=== PATIENT | female | born 1960 | race Caucasian/White ===

== ENCOUNTER 2021-11-29 08:15 | Outpatient (CLI) | payer MEDICAID, SELFPAY ==
--- NOTE | 2021-11-29 08:20 | MM_ITS ---
WS: [id number] BILATERAL SCREENING DIGITAL BREAST TOMOSYNTHESIS MAMMOGRAM WITH CAD HISTORY: SCREENING COMPARISON: 02/15/2010 Bilateral CC and MLO views with tomosynthesis and synthetic mammography submitted. Computer aided det ection analyzed. Breast composition: The breasts are extremely dense, which lowers the sensitivity of mammography. No suspicious masses, microcalcifications or architectural distortion. MM/[place] [id number] IMPRESSION: BI-RADS: 1-Negative FOLLOW UP: 1 Year Follow-up
== END 2021-11-29 08:16 | disposition home or self-care (01) ==
LOC: RAD 08:18
PROVIDERS: PCP Family Medicine; Visit Provider Nurse Practitioner Family
DX: Z12.31 Encounter for screening mammogram for malignant neoplasm of breast (principal)
CPT/HCPCS: 77063; 77067

== ENCOUNTER → 2022-02-26 11:49 | Outpatient (BNVA) | payer MEDICAID, SELFPAY | PROVIDERS: PCP Family Medicine; Visit Provider Family Medicine | DX: E03.9 Hypothyroidism, unspecified (principal); E78.2 Mixed hyperlipidemia; F41.9 Anxiety disorder, unspecified; G80.9 Cerebral palsy, unspecified; I10 Essential (primary) hypertension; Z76.89 Persons encountering health services in other specified circumstances; M79.672 Pain in left foot; M21.612 Bunion of left foot | CPT/HCPCS: 80053; 80061; 84439; 84443; 85025 ==

== ENCOUNTER → 2022-06-17 09:18 | Outpatient (BNVA) | payer MEDICAID, SELFPAY | PROVIDERS: PCP Family Medicine; Visit Provider Family Medicine | DX: E03.9 Hypothyroidism, unspecified (principal) | CPT/HCPCS: 84439; 84443 ==

== ENCOUNTER → 2022-12-16 08:20 | Outpatient (BNVA) | payer MEDICAID, SELFPAY | PROVIDERS: PCP Family Medicine; Visit Provider Family Medicine | DX: D64.9 Anemia, unspecified (principal); E03.9 Hypothyroidism, unspecified; E78.2 Mixed hyperlipidemia; I10 Essential (primary) hypertension | CPT/HCPCS: 80053; 80061; 82607; 82746; 84439; 84443; 85025 ==

== ENCOUNTER 2023-02-06 18:11 | Emergency (ER) | payer MEDICAID, SELFPAY ==
[2023-02-06 18:12] VITALS: BP 145/68; PULSE 89; RESP 18; TEMP 36.8; O2SAT 98; BMI 21.1
--- NOTE | 2023-02-06 18:33 | W.ED.ANXIETY ---
HPI - Anxiety General: Chief Complaint: Anxiety Stated Complaint: ANXIETY Time Seen by Provider: 02/06/23 18:20 History of Present Illness: Patient presents to the ER by EMS with complaints of nausea vomiting diarrhea rapid breathing muscle cramps. Patient states she had a lot of anxiety. Patient's was in the ER last night for STEMI and got a stent. Since then she is having lots of anxiety and gastritis type symptoms. Patient has had gastritis in the past but is not currently on any medicine for this. Ativan was given by EMS and patient says she feels little bit better. Patient is asking for ice chips. Review of Systems General: Reports: 10 or more systems reviewed and unremarkable except in HPI and below PFSH ED PFSH: Medical History Anxiety Cerebral palsy Social History Smoking and tobacco status: never smoked Alcohol intake: never Substance/Drug Use: current Female Reproductive History: Spontaneous abortions: No Physical Exam Const: COMMON NORMALS: no acute distress, average body habitus, patient oriented x3, no limitations, healthy appearing, alert and well nourished HENMT: COMMON NORMALS: normocephalic, atraumatic, hearing grossly normal bilaterally, external ears normal, Normal external nose present and moist oral mucous membranes HEAD & SCALP: normocephalic and atraumatic NOSE: Normal external nose present EXTERNAL EAR: Yes external ears normal Eye: COMMON NORMALS: Equal, round and reactive pupils present, EOMs intact bilaterally, conjunctivae normal and no scleral icterus CONJUNCTIVA: Yes conjunctivae normal PUPIL: Yes Equal, round and reactive pupils present Neck/C-Spine: COMMON NORMALS: no JVD Chest: COMMONS NORMALS: normal inspection of the chest and normal palpation of entire chest wall Resp: COMMON NORMALS: normal respiratory effort, No retractions, No use of accessory muscles and clear to auscultation bilaterally AUSCULTATION: clear to auscultation bilaterally Cardio: COMMON NORMALS: no JVD, regular rate, regular rhythm, S1 normal heart sound present, S2 normal heart sound present, No gallops present (Cardio), No clicks present (Cardio), No murmurs present (Cardio) and No rub (Cardio) RATE: regular rate RHYTHM: regular rhythm HEART SOUNDS: S1 normal heart sound present and S2 normal heart sound present GI: COMMON NORMALS: Normal to inspection, nondistended, normoactive bowel sounds present, Soft to palpation, non-tender, No hepatosplenomegaly present and no masses PALPATION: Yes Soft to palpation and Yes No hepatosplenomegaly present : COMMON NORMALS: Yes no CVA tenderness BLADDER/KIDNEY EXAM: Yes no CVA tenderness Back/Pelvis: COMMON NORMALS: no CVA tenderness Neuro: COMMON NORMALS: patient oriented x3 SENSORIUM/ORIENTATION: Yes alert Psych: COMMON NORMALS: mental status grossly normal and Normal thought process present MOOD & AFFECT: Yes anxious THOUGHT PROCESS: Normal thought process present Course Vital Signs: Vital signs: Vital Signs Temperature 98.2 F 02/06/23 18:12 Pulse Rate 89 02/06/23 18:12 Respiratory Rate 18 02/06/23 18:12 Blood Pressure 145/68 02/06/23 18:12 Pulse Oximetry 98 02/06/23 18:12 Oxygen Delivery Me thod Room Air 02/06/23 18:12 MDM - Anxiety Medical Decision Making Patient presents to the ER with gastritis and anxiety secondary to a stressful event with her having a STEMI last night. Patient has Tagamet at home and is on es Citalopram for anxiety. Patient has used Klonopin and Ativan before in the past for anxiety on a as needed basis but did not like the side effects of either one of them. Patient be discharged on buspirone to use on an as-needed basis. Patient should follow-up with her PCP in the next week. Differential Diagnosis Likely hyperventilation and acute anxiety; Unlikely panic disorder Medical Records I reviewed the patient's medical records. Lab Data I reviewed the patient's lab results. 02/06/23 18:45 02/06/23 18:45 Laboratory Results WBC 8.90 10^3/uL (3.29-11.43) 02/06/23 18:45 RBC 3.43 10^6/uL (3.85-5.65) L 02/06/23 18:45 Hgb 10.30 g/dL (11.27-16.99) L 02/06/23 18:45 Hct 30.8 % (36-47) L 02/06/23 18:45 MCV 89.8 fl (85-98) 02/06/23 18:45 MCH 30.0 pg (27-33) 02/06/23 18:45 MCHC 33.4 g/dL (30-55) 02/06/23 18:45 RDW 13.2 % (12.1-15.1) 02/06/23 18:45 Plt Count 243 10^3/cmm (157-399) 02/06/23 18:45 MPV 9.6 fL (7.4-10.4) 02/06/23 18:45 Neut % (Auto) 88.9 % 02/06/23 18:45 Lymph % (Auto) 6.7 % 02/06/23 18:45 [place] % (Auto) 3.8 % 02/06/23 18:45 Eos % (Auto) 0.0 % 02/06/23 18:45 Baso % (Auto) 0.2 % 02/06/23 18:45 Neut # (Auto) 7.90 10^3/uL (1.8-7.7) H 02/06/23 18:45 Lymph # (Auto) 0.6 10^3/uL (0.8-4.8) L 02/06/23 18:45 [place] # (Auto) 0.3 10^3/uL (0.2-0.9) 02/06/23 18:45 Eos # (Auto) 0.0 10^3/uL (0.0-0.8) 02/06/23 18:45 Baso # (Auto) 0.0 10^3/uL (0.0-0.1) 02/06/23 18:45 Nucleated RBC % (auto) 0 % 02/06/23 18:45 Nucleated RBCs # 0.0 /100WBC 02/06/23 18:45 Sodium 139 mmol/L (136-145) 02/06/23 18:45 Potassium 3.8 mmol/L (3.5-5.1) 02/06/23 18:45 Chloride 105 mmol/L (98-107) 02/06/23 18:45 Carbon Dioxide 23 mmol/L (22-29) 02/06/23 18:45 Anion Gap 14.8 (5-19) 02/06/23 18:45 BUN 30 mg/dL (8-23) H 02/06/23 18:45 Creatinine 1.4 mg/dL (0.5-0.9) H 02/06/23 18:45 GFR Calculation 38.2 mL/min (90-130) L 02/06/23 18:45 Glucose 141 mg/dL (65-115) H 02/06/23 18:45 Calculated Osmolality 297 mOsm/kg (285-295) H 02/06/23 18:45 Calcium 9.0 mg/dL (8.5-10.5) 02/06/23 18:45 Magnesium 1.9 mg/dL (1.7-2.3) 02/06/23 18:45 Total Bilirubin 0.5 mg/dL (0.15-1.2) 02/06/23 18:45 AST 17 U/L (0-32) 02/06/23 18:45 ALT 11 U/L (0-33) 02/06/23 18:45 Alkaline Phosphatase 59 U/L (35-105) 02/06/23 18:45 Total Protein 6.6 g/dL (6.6-8.7) 02/06/23 18:45 Albumin 4.5 g/dL (3.5-5.2) 02/06/23 18:45 Globulin 2.1 g/dL (1.3-4.6) 02/06/23 18:45 Discharge Plan Discharge Patient Disposition: Home Clinical Impression: Acute anxiety Gastritis Qualifiers: Gastritis type: unspecified gastritis Chronicity: unspecified Gastritis bleeding: without bleeding Qualified Code(s): K29.70 - Gastritis, unspecified, without bleeding Condition: Stable Prescriptions: New buspirone 5 mg tablet 5 mg PO TID PRN (Reason: anxiety) Qty: 14 0RF ondansetron 4 mg tablet,disintegrating 4 mg PO TID PRN (Reason: nausea and vomiting) Qty: 14 0RF No Action escitalopram oxalate 20 mg tablet See Rx Instructions .ROUTE .COMPLEX Qty: 90 3RF Dose Instruction: Take 1 tablet by mouth once daily Rx Instructions: Take 1 tablet by mouth once daily ezetimibe 10 mg tablet 10 mg PO DAILY Qty: 90 3RF levothyroxine [Synthroid] 100 mcg tablet 100 mcg PO DAILY Qty: 90 1RF amlodipine-benazepril 5-20 mg capsule See Rx Instructions .ROUTE .COMPLEX Qty: 90 3RF Dose Instruction: TAKE 1 CAPSULE BY MOUTH ONCE DAILY IN THE EVENING Rx Instructions: TAKE 1 CAPSULE BY MOUTH ONCE DAILY IN THE EVENING Discharge Orders: Discharge ED (Routine); Ordered 02/06/23 Ordered By: Yohan Bermeo Referrals: Jesús Smith DO [Primary Care Provider] - Patient Instructions: Gastritis (ED), Anxiety (ED) Activity Restrictions/Additional Instructions: Please take all medicine as prescribed please continue your Tagamet for your stomach. Please follow-up with your family practice physician in the next 7 days for further evaluation and treatment as needed. Coding Level of Care Code ED Cash Room Clerk for Fiona Sauer
[2023-02-06] MEDS: famotidine 20 mg Tablet 40 MG PO (18:53)
[2023-02-06] MEDS: ondansetron 4 MG Tablet PO (18:53)
[2023-02-06 18:55] LABS: Basophils % 0.2 %; Hematocrit 30.8 % (36-47); Lymphocytes # 0.6 10^3/uL (0.8-4.8); Lymphocytes % 6.7 %; Mean Corpuscular HGB Conc 33.4 g/dL (30-55); Mean Corpuscular Volume 89.8 fl (85-98); Mean Platelet Volume 9.6 fL (7.4-10.4); Monocytes # 0.3 10^3/uL (0.2-0.9); Monocytes % 3.8 %; Neutrophils % 88.9 %; Nucleated Red Blood Cells % 0 %; Platelet Count 243 10^3/cmm (157-399); Red Blood Count 3.43 10^6/uL (3.85-5.65); Red Cell Distribution Width 13.2 % (12.1-15.1)
[2023-02-06 19:11] LABS: Alanine Aminotransferase 11 U/L (0-33); Albumin Level 4.5 g/dL (3.5-5.2); Alkaline Phosphatase 59 U/L (35-105); Anion Gap 14.8 (5-19); Aspartate Amino Transferase 17 U/L (0-32); Blood Urea Nitrogen 30 mg/dL (8-23); Carbon Dioxide 23 mmol/L (22-29); Chloride 105 mmol/L (98-107); Globulin 2.1 g/dL (1.3-4.6); Glomerular Filtration Rate 38.2 mL/min (90-130); Glucose 141 mg/dL (65-115); Magnesium 1.9 mg/dL (1.7-2.3); Osmolality Calculated 297 mOsm/kg (285-295); Potassium 3.8 mmol/L (3.5-5.1); Sodium 139 mmol/L (136-145); Total Bilirubin 0.5 mg/dL (0.15-1.2); Total Protein 6.6 g/dL (6.6-8.7)
== END 2023-02-06 20:02 | disposition home or self-care (01) ==
PROVIDERS: Emergency Provider Emergency Medicine; PCP Family Medicine
DX: F41.9 Anxiety disorder, unspecified (principal); K29.70 Gastritis, unspecified, without bleeding; G80.9 Cerebral palsy, unspecified
CPT/HCPCS: 36415; 80053; 83735; 85025; 99283; Q0162

== ENCOUNTER → 2023-05-13 10:14 | Outpatient (BNVA) | payer MEDICAID, SELFPAY | PROVIDERS: PCP Family Medicine; Visit Provider Family Medicine | DX: E03.9 Hypothyroidism, unspecified (principal); D64.9 Anemia, unspecified; I10 Essential (primary) hypertension; N18.32 Chronic kidney disease, stage 3b | CPT/HCPCS: 80053; 81003; 82043; 84443; 85025 ==

== ENCOUNTER 2023-05-16 11:56 | Outpatient (CLI) | payer MEDICAID, SELFPAY ==
--- NOTE | 2023-05-16 12:01 | US_ITS ---
WS: [id number] Exam: US renal BI* [id number] Date/Time of Exam: 05/16/2023 12:27 PM Reason For Exam: STAGE 3B CHRONIC KIDNEY DZ No solid renal mass or renal obstruction noted. The LEFT kidney measures 4.33 x 4 x 8.27 cm. Renal co rtex measures 1.12 cm in greatest thickness. RIGHT kidney measures 8.96 x 4.1 x 5.1 cm. RIGHT renal c ortex measures 1.35 cm at maximal thickness. IMPRESSION: 1. No indication of solid renal mass or obstruction. No stones identified. 2. The kidneys are mildly atrophic.
== END 2023-05-16 11:57 | disposition home or self-care (01) ==
LOC: RAD 11:56
PROVIDERS: PCP Family Medicine; Visit Provider Internal Medicine Nephrology
DX: N18.32 Chronic kidney disease, stage 3b (principal); N26.1 Atrophy of kidney (terminal)
CPT/HCPCS: 76770

== ENCOUNTER 2023-05-19 06:59 | Day surgery (SDC) | payer MEDICAID, SELFPAY ==
[2023-05-19 07:16] VITALS: BP 139/50; PULSE 84; RESP 18; TEMP 36.3; O2SAT 97
[2023-05-19 07:17] VITALS: BMI 20.6
[2023-05-19] MEDS: sodium chloride 0.9% 1,000 ML 30 ML IV (07:31)
--- NOTE | 2023-05-19 08:17 | P.HPUD_ITS ---
Surgery/Procedure H&P Update DATE OF PROCEDURE: May 19, 2023 DATE H&P PERFORMED: 05/09/23 H&P UPDATE INFORMATION: I have reviewed H&P completed within last 30 days, I have examined patient prior to procedure, No changes to prior documentation and H&P is in [facility] on date indicated PLANNED PROCEDURE: Operation Date: 05/19/23 10:45 Proposed Procedures p [id number] left shoulder wide local excision(Left) - Hank Fortune MD s Sentinal Lymph Node Biopsy(Left) - Hank Fortune MD
--- NOTE | 2023-05-19 08:20 | PC.NURSE ---
Patient was injected with 1.05 mCi Tc99m Tilmanocept Lymphoseek at 0753 by Rosa ZHAOMT around the scar on the left posterior shoulder. Immediate flow images started following injection patient laying prone.
[2023-05-19] MEDS: ceFAZolin 2,000 MG in sodium chloride 0.9% (plus) 50 ML 100 MG IV (12:00)
[2023-05-19] MEDS: isosulfan blue 10 mg/mL SDV 5mL 50 MG SUBCUT (12:30)
--- NOTE | 2023-05-19 13:01 | P.ANESASSM_ITS ---
Pre-Anesthetic Assessment Height/Weight: Height 1.68 m Weight 58.06 kg Temp Pulse Resp BP Pulse Ox O2 Del Method 97.3 F L 84 18 139/50 97 Room Air 05/19/23 07:16 05/19/23 07:16 05/19/23 07:16 05/19/23 07:16 05/19/23 07:16 05/19/23 07:17 Operation Date: 05/19/23 10:45 Proposed Procedures p [id number] left shoulder wide local excision(Left) - Hank Fortune MD s Sentinal Lymph Node Biopsy(Left) - Hank Fortune MD Familial anesthetic complications: PONV Was Beta Radhika taken within 24 hours: N/A Was Clonidine taken within 24 hours: N/A Last intake: Intake Last Liquid Date 05/18/23 Last Liquid Time 21:00 Last Solid Date 05/18/23 Last Solid Time 16:00 Social No alcohol and No tobacco Exam alert, oriented x 3, clear to auscultation bilaterally and regular rate & rhythm Airway Submandibular: within normal limits Cervical ROM: within normal limits Mallampati: Class II Dentition: other (Missing several) CV/HEM Anemia and Hypertension Chronic Renal Insufficiency GI Gastroesophageal Reflux Disease Metabolic Thyroid Disease Neuropsych Anxiety Cerebral Palsy Anesthetic Plan ASA status: 3 Anesthesia: General Medications/Allergies Home Medications Medication Instructions Recorded Confirmed Last Taken Type ondansetron 4 mg disintegrating 4 mg PO TID PRN nausea and 02/25/23 05/16/23 Unknown Rx tablet vomiting #20 tabs pantoprazole 40 mg tablet,delayed 40 mg PO DAILY #30 tabs 02/25/23 05/16/23 05/16/23 Rx release (Protonix) clonazepam 0.5 mg tablet 0.5 mg PO DAILY PRN anxiety 30 02/27/23 05/19/23 05/18/23 Rx days #14 tabs amlodipine 5 mg-benazepril 20 mg 5 - 20 cap PO QPM 05/16/23 05/19/23 05/18/23 21:00 History capsule escitalopram oxalate 20 mg tablet 20 mg PO DAILY 05/16/23 05/19/23 05/18/23 21:00 History (Lexapro) levothyroxine 100 mcg tablet 100 mcg PO DAILY 05/16/23 05/19/23 05/19/23 History (Synthroid) acetaminophen 325 mg tablet 325 mg PO QID PRN Pain 05/19/23 05/19/23 05/18/23 Hi story (Tylenol) ezetimibe 10 mg tablet (Zetia) 10 mg PO DAILY 05/19/23 05/19/23 05/18/23 21:00 History Allergies Allergy/AdvReac Type Severity Reaction Status Date / Time Sulfa (Sulfonamide Allergy Severe ALGY-Swell Verified 05/16/23 15:11 Antibiotics) Lip/Tongue/Throat egg Allergy Unknown ADR-Diarrhe Verified 05/16/23 15:11 a Current Medications Generic Name Dose Route Start Last Admin Trade Name Freq PRN Reason Stop Dose Admin Sodium Chloride 1,000 mls @ 30 mls/hr 05/19/23 07:15 05/19/23 07:31 Sodium Chloride 0.9% IV 05/20/23 07:14 30 mls/hr .Q24H LILI Administration PFSH Anesthesia Medical History (Updated 05/09/23 @ 14:43 by Hank Fortune MD) Anxiety Cerebral palsy Social History (Updated 05/09/23 @ 11:09 by LEILA Sampson) Smoking and tobacco/nicotine status: never used tobacco/nicotine Alcohol intake: never Substance/Drug Use: current Female Reproductive History Spontaneous abortions: No Data Anesthesia Cardiac Studies: No Data to Display
[2023-05-19] MEDS: BUPivacaine 0.25% INJ 10 mL INJECTION ×2 (13:25→13:30)
[2023-05-19] MEDS: lidocaine-epi 2% 20 mL INJ 10 ML INJECTION (13:25)
[2023-05-19] MEDS: lidocaine-epi 2% 20 mL INJ INJECTION (13:30)
--- NOTE | 2023-05-19 14:10 | P.OP_ITS ---
Operative Report Date of procedure: May 19, 2023 Pre-op diagnosis: Malignant of melanoma of the left shoulder Post-op diagnosis: Same Post-op findings: Previous surgical incision resected with me in the specimen, sentinel node located on the left axilla and excised Procedure done: Wide local excision of left shoulder malignant melanoma, left axillary sentinel node biopsy. 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 Wide local incision and sentinel node biopsy was indicated. After discussion of the risk and benefits with side to p rubia. Procedure: Was sent to radiology preop to receive a lymphoscintigraphy and lymph node identification. Patient was brought into the OR, she was placed in the supine position. General esthesia given. Melanoma site was infiltrated with about 2 cc of isosulfan blue. The left shoulder axilla and left upper extremity were prepped and draped in the usual sterile fashion. Timeout was conducted. I then proceeded to elizabeth an area around the previous excision site with a margin of about 1 to 1.5 cm. I made an elliptical incision encompassing the affected area, the incision was deepened to subcutaneous tissue using electrocautery, from here to there for consideration of maintaining oncological margins and the decision was deepened to the level of the periscapular fascia. The specimen was then excised. The specimen was marked short superior long lateral and was passed to the scrub table to be sent to pathology. Hemostasis was obtained. The wound was irrigated with saline. Electrocautery was used to create superior and inferior flaps to allow for wound closure. I then proceeded with closure in layers using #3-0 Vicryl for the subcutaneous tissue and #3-0 nylon vertical mattress for the skin. Sterile dressing was applied. I then placed my attention to the left axilla, gamma probe was used to identify the area of maximal intensity, this area was located right in the axillary fossa, I proceeded to make a transverse incision measuring 4 cm, the incision was deepened until the axillary fascia was identified, the axillary fascia was elevated and then sharply opened Revealing the axillary fat nodes and axillary fossa. The marker was used to then defy the area of interest, the lymph node was identified and dissected from the surrounding tissues with careful blunt dissection. Once the node was excised, a probe was used to verify this was a sentinel node, the node was positive for radiotracer, and minimal radiotracer activity was noted on the axillary ba hemostasis was verified, the wound was irrigated with saline. The wound was then closed in layers using #3-0 Vicryl for the axillary fascia and the subcutaneous tissue and #4 Monocryl for the skin. Dermabond and a compressive dressing was applied. At the end of the procedure all counts were correct, the patient tolerated well the procedure and transferred to the PACU in stable condition.
[2023-05-19 14:25] VITALS: BP 135/66; PULSE 90; RESP 16; TEMP 36.1; O2SAT 100
[2023-05-19 14:32] VITALS: BP 116/65; PULSE 90; RESP 16; O2SAT 92
[2023-05-19 14:37] VITALS: BP 113/58; PULSE 89; RESP 16; O2SAT 92
[2023-05-19 14:44] VITALS: BP 121/53; PULSE 88; RESP 17; TEMP 36.8; O2SAT 97
--- NOTE | 2023-05-19 15:09 | SUR.PHASEII ---
Patient arrived to Phase II with dressings falling off. Supplies were gathered and sites were redressed. Top of left shoulder has sutures in place with steri strips covering. Nurse covered steri strips with telfa and covered with 2 tegaderm. Under left arm was small telfa, nurse covered with larger telfa, folded 4x4's, and 2 tegaderm.
[2023-05-19 15:28] VITALS: BP 125/52; PULSE 83; RESP 16; TEMP 36.8; O2SAT 97
[2023-05-19] MEDS: oxyCODONE 5 mg IR Tab/Cap PO (15:33)
--- NOTE | 2023-05-19 15:54 | ANE.PACU2 ---
Inpatient post-anesthesia follow up: Airway intact: Yes Vital signs: Temperature 98.2 F Pulse Rate 83 Respiratory Rate 16 Blood Pressure 125/52 Pulse Oximetry 97 Oxygen Delivery Me thod Room Air Oxygen Flow Rate Fraction of Inspir ed Oxygen Hydration adequate: Yes Nausea and vomiting: No Pain level: 2 Mental status: Baseline
== END 2023-05-19 15:39 | disposition home or self-care (01) ==
PROVIDERS: PCP Family Medicine; Visit Provider Surgery
PROC: (CPT 11602; principal; 2023-05-19 10:35)
PROC: (CPT 11602; 2023-05-19 10:35)
DX: C44.609 Unspecified malignant neoplasm of skin of left upper limb, including shoulder (principal); N18.32 Chronic kidney disease, stage 3b; I12.9 Hypertensive chronic kidney disease with stage 1 through stage 4 chronic kidney disease, or unspecified chronic kidney disease; K21.9 Gastro-esophageal reflux disease without esophagitis
CPT/HCPCS: 11602; 12031; 38500; 78195; 88304; 88307; 88342; A9541; J0690; J1100; J2371; J2405; J2704; J3010; J3490; J7030; Q9968

== ENCOUNTER 2023-07-24 11:15 | Oncology outpatient (recurring) (ONCR) | payer MEDICAID, SELFPAY ==
[2023-07-22 11:32] LABS: Basophils # 0.1 10^3/uL (0.0-0.1); Basophils % 0.7 %; Eosinophils # 0.1 10^3/uL (0.0-0.8); Eosinophils % 0.8 %; Hematocrit 33.9 % (36-47); Lymphocytes # 1.1 10^3/uL (0.8-4.8); Lymphocytes % 12.6 %; Mean Corpuscular HGB Conc 31.9 g/dL (30-55); Mean Corpuscular Hemoglobin 29.7 pg (27-33); Mean Corpuscular Volume 93.1 fl (85-98); Mean Platelet Volume 9.4 fL (7.4-10.4); Monocytes # 0.3 10^3/uL (0.2-0.9); Monocytes % 3.2 %; Neutrophils # 7.25 10^3/uL (1.8-7.7); Neutrophils % 82.5 %; Nucleated Red Blood Cells % 0 %; Platelet Count 276 10^3/cmm (157-399); Red Blood Count 3.64 10^6/uL (3.85-5.65); Red Cell Distribution Width 13.3 % (12.1-15.1); White Blood Count 8.79 10^3/uL (3.29-11.43)
[2023-07-22 11:48] LABS: Alanine Aminotransferase 10 U/L (0-33); Albumin Level 4.3 g/dL (3.5-5.2); Alkaline Phosphatase 70 U/L (35-105); Anion Gap 12.4 (5-19); Aspartate Amino Transferase 15 U/L (0-32); Blood Urea Nitrogen 29 mg/dL (8-23); Calcium 8.8 mg/dL (8.5-10.5); Carbon Dioxide 26 mmol/L (22-29); Chloride 105 mmol/L (98-107); Globulin 2.4 g/dL (1.3-4.6); Glomerular Filtration Rate 35.3 mL/min (90-130); Glucose 111 mg/dL (65-115); Lactate Dehydrogenase 168 U/L (135-214); Osmolality Calculated 295 mOsm/kg (285-295); Potassium 4.4 mmol/L (3.5-5.1); Sodium 139 mmol/L (136-145); Total Bilirubin 0.3 mg/dL (0.15-1.2); Total Protein 6.7 g/dL (6.6-8.7)
[2023-07-22 11:49] LABS: Creatinine Clr Calc Pharmacy 36.9004
[2023-07-25 12:49] LABS: PROTEIN, TOTAL 6.3 g/dL (6.1-8.1)
[2023-07-25 13:24] LABS: KAPPA LIGHT CHAIN, FREE, SERUM 32.6 mg/L (3.3-19.4); KAPPA/LAMBDA LIGHT CHAINS FREE 1.72 (0.26-1.65); LAMBDA LIGHT CHAIN, FREE, SERU 18.9 mg/L (5.7-26.3)
[2023-07-26 16:25] LABS: Creatinine, Random Urine 97 mg/dL (20-275); Protein, Total, Random 7 mg/dL (5-24); Protein/Creatinine Ratio 0.072 (0.024-0.184); Protein/Creatinine Ratio 72 mg/g creat (24-184)
[2023-07-28 09:50] LABS: ALPHA 1 GLOBULIN 0.3 g/dL (0.2-0.3); ALPHA 2 GLOBULIN 0.6 g/dL (0.5-0.9); BETA 1 GLOBULIN 0.4 g/dL (0.4-0.6); BETA 2 GLOBULIN 0.3 g/dL (0.2-0.5); GAMMA GLOBULIN 0.8 g/dL (0.8-1.7)
[2023-08-01 09:40] LABS: Albumin,Urine Random 100 %; Alpha-1-Globulins Urine Random 0 %; Alpha-2-Globulins Urine Random 0 %; Beta-Globulin,Urine Random 0 %; Gamma Globulin,Urine Random 0 %
== END 2023-07-31 23:59 | disposition home or self-care (01) ==
PROVIDERS: PCP Family Medicine; Visit Provider Internal Medicine
DX: C43.62 Malignant melanoma of left upper limb, including shoulder (principal); Z53.9 Procedure and treatment not carried out, unspecified reason
CPT/HCPCS: 36415; 80053; 82570; 83615; 83883; 84155; 84156; 84165; 84166; 85025; 86334; 86335

== ENCOUNTER 2023-08-15 09:27 | Oncology outpatient (recurring) (ONCR) | payer MEDICAID, SELFPAY ==
[2023-08-15 10:00] LABS: Reticulocyte % 1.1 % (0.5-2.0)
[2023-08-15 10:18] LABS: Ferritin 139 ng/mL (15-150); Iron 67 ug/dL (37-145); Total Iron Binding Capacity 239 mcg/dl; Unsaturated Iron Binding 172 ug/dL (112-347)
[2023-08-15 10:34] LABS: Vitamin B12 403 pg/mL (232-1245)
[2023-08-15 10:44] LABS: Folate Level 5.4 ng/mL (4.8-37.3)
[2023-08-18 06:59] LABS: Methylmalonic Acid 281 nmol/L (87-318)
== END 2023-08-31 23:59 | disposition home or self-care (01) ==
LOC: ONCMED 09:27
PROVIDERS: PCP Family Medicine; Visit Provider Internal Medicine
DX: C43.62 Malignant melanoma of left upper limb, including shoulder (principal); D64.9 Anemia, unspecified
CPT/HCPCS: 36415; 82607; 82728; 82746; 83540; 83550; 83921; 85045

== ENCOUNTER 2023-10-14 11:03 | Day surgery (SDC) | payer MEDICAID, SELFPAY ==
[2023-10-14 11:26] VITALS: BP 129/58; PULSE 66; RESP 16; TEMP 36.5; O2SAT 100; BMI 21.1
--- NOTE | 2023-10-14 11:31 | W.PM.OPSFHP ---
Same Day Surgery H&P Indication for Procedure/HPI DATE OF PROCEDURE: October 14, 2023 CHIEF COMPLAINT/INDICATIONFOR SURGICAL PROCEDURE: need for screenig colonoscopy and gerd PREOP DIAGNOSIS: need for screening colonoscopy and gerd PLANNED PROCEDURE: Operation Date: 10/14/23 12:15 Proposed Procedures p EGD 57322, 20926 G0105, Z12.11, R11.2, D64.9(Not Applicable) - Hank Fortune MD s Colonoscopy(Not Applicable) - Hank Fortune MD Medications/Allergies* Home Medications Medication Instructions Recorded Confirmed Type amlodipine 5 mg-benazepril 20 mg 5 - 20 cap PO QPM 05/16/23 10/14/23 History capsule escitalopram oxalate 20 mg tablet 20 mg PO DAILY 05/16/23 10/14/23 History (Lexapro) levothyroxine 100 mcg tablet 100 mcg PO DAILY 05/16/23 10/14/23 History (Synthroid) acetaminophen 325 mg tablet 325 mg PO QID PRN Pain 05/19/23 10/14/23 History (Tylenol) ezetimibe 10 mg tablet (Zetia) 10 mg PO DAILY 05/19/23 10/14/23 History cetirizine 10 mg capsule (Zyrtec) 10 mg PO DAILY 09/26/23 10/14/23 History cimetidine 200 mg tablet 200 mg PO DAILY 09/26/23 10/14/23 History simethicone 125 mg capsule (Gas-X 125 mg PO DAILY PRN GAS 10/09/23 10/14/23 History Extra Strength) Allergies/Adverse Reactions Allergy/AdvReac Type Severity Reaction Status Date / Time Sulfa (Sulfonamide Allergy Severe ALGY-Swell Verified 10/14/23 11:21 Antibiotics) Lip/Tongue/Throat egg Allergy Unknown ADR-Diarrhe Verified 10/14/23 11:21 a codeine Allergy ADR-Nausea Verified 10/14/23 11:21 Pertinent History/Comorbid Conditions* Medical History (Updated 07/22/23 @ 10:51 by Rajendra Avila MD) Marijuana smoker, continuous History of tobacco abuse Anxiety Cerebral palsy Social History Smoking and tobacco/nicotine status: never used tobacco/nicotine Alcohol intake: never Substance/Drug Use: current Pertinent Exam Findings alert, oriented x 3 and clear to auscultation bilaterally Recommendations Surgery/Procedure today Coding Level of Care Code Acute Code for Chg Fwd
[2023-10-14] MEDS: sodium chloride 0.9% 1,000 ML 30 ML IV (11:34)
--- NOTE | 2023-10-14 12:01 | P.ANESASSM_ITS ---
Pre-Anesthetic Assessment Height/Weight: Height 1.68 m Weight 59.421 kg Temp Pulse Resp BP Pulse Ox O2 Del Method 97.7 F 66 16 129/58 100 Room Air 10/14/23 11:10/14/23 11:10/14/23 11:10/14/23 11:10/14/23 11:10/14/23 11:26 Preop Diagnosis: need for screening colonoscopy and gerd Operation Date: 10/14/23 12:15 Proposed Procedures p EGD 57861, 55855 G0105, Z12.11, R11.2, D64.9(Not Applicable) - Hank Fortune MD s Colonoscopy(Not Applicable) - Hank Fortune MD Last intake: Intake Last Liquid Date 10/13/23 Last Liquid Time 22:00 Last Solid Date 10/12/23 Last Solid Time 17:00 Social No tobacco Exam alert, oriented x 3, clear to auscultation bilaterally and regular rate & rhythm Airway Submandibular: within normal limits Cervical ROM: within normal limits Mallampati: Class I Pulmonary None reported CV/HEM Hypertension None reported Hepatic None reported Metabolic Thyroid Disease Anesthetic Plan ASA status: 2 Anesthesia: MAC Risk of > 500 ml blood loss (7ml/kg in children): No Medications/Allergies Home Medications Medication Instructions Recorded Confirmed Last Taken Type ondansetron 4 mg disintegrating 4 mg PO TID PRN nausea and 02/25/23 10/14/23 09/26/23 Rx tablet vomiting #20 tabs clonazepam 0.5 mg tablet 0.5 mg PO DAILY PRN anxiety 30 02/27/23 10/14/23 10/13/23 Rx days #14 tabs amlodipine 5 mg-benazepril 20 mg 5 - 20 cap PO QPM 05/16/23 10/14/23 10/13/23 History capsule escitalopram oxalate 20 mg tablet 20 mg PO DAILY 05/16/23 10/14/23 10/13/23 History (Lexapro) levothyroxine 100 mcg tablet 100 mcg PO DAILY 05/16/23 10/14/23 10/14/23 History (Synthroid) acetaminophen 325 mg tablet 325 mg PO QID PRN Pain 05/19/23 10/14/23 10/12/23 History (Tylenol) ezetimibe 10 mg tablet (Zetia) 10 mg PO DAILY 05/19/23 10/14/23 10/13/23 History cetirizine 10 mg capsule (Zyrtec) 10 mg PO DAILY 09/26/23 10/14/23 10/13/23 History cimetidine 200 mg tablet 200 mg PO DAILY 09/26/23 10/14/23 10/13/23 History simethicone 125 mg capsule (Gas-X 125 mg PO DAILY PRN GAS 10/09/23 10/14/23 Un known History Extra Strength) Allergies Allergy/AdvReac Type Severity Reaction Status Date / Time Sulfa (Sulfonamide Allergy Severe ALGY-Swell Verified 10/14/23 11:21 Antibiotics) Lip/Tongue/Throat egg Allergy Unknown ADR-Diarrhe Verified 10/14/23 11:21 a codeine Allergy ADR-Nausea Verified 10/14/23 11:21 Current Medications Generic Name Dose Route Start Last Admin Trade Name Freq PRN Reason Stop Dose Admin Sodium Chloride 1,000 mls @ 30 mls/hr 10/14/23 11:30 10/14/23 11:34 Sodium Chloride 0.9% IV 30 mls/hr .Q24H LILI Administration PFSH Anesthesia Medical History Marijuana smoker, continuous History of tobacco abuse Anxiety Cerebral palsy Social History Smoking and tobacco/nicotine status: never used tobacco/nicotine Alcohol intake: never Substance/Drug Use: current Female Reproductive History Spontaneous abortions: No Data Anesthesia Cardiac Studies: No Data to Display
[2023-10-14 13:01] VITALS: BP 116/54; PULSE 76; RESP 18; TEMP 36.1; O2SAT 98
[2023-10-14 13:13] VITALS: BP 129/53; PULSE 67; RESP 18; O2SAT 98
--- NOTE | 2023-10-14 13:42 | P.ANESPOST_ITS ---
Inpatient post-anesthesia follow up: Vital signs: Temperature 97.0 F Pulse Rate 67 Respiratory Rate 18 Blood Pressure 129/53 Pulse Oximetry 98 Oxygen Delivery Me thod Room Air Oxygen Flow Rate Fraction of Inspir ed Oxygen Hydration adequate: Yes Nausea and vomiting: No Pain level: con trolled Mental status: Baseline Additional Comments: no apparent anesthetic complications noted
== END 2023-10-14 13:32 | disposition home or self-care (01) ==
PROVIDERS: PCP Family Medicine; Visit Provider Surgery
PROC: 0DJ08ZZ Inspection of Upper Intestinal Tract, Via Natural or Artificial Opening Endoscopic (ICD-10-PCS; CPT 43235; principal; 2023-10-14 12:15)
PROC: 0DJD8ZZ Inspection of Lower Intestinal Tract, Via Natural or Artificial Opening Endoscopic (ICD-10-PCS; CPT 45378; 2023-10-14 12:15)
DX: Z12.11 Encounter for screening for malignant neoplasm of colon (principal); K21.00 Gastro-esophageal reflux disease with esophagitis, without bleeding; K57.30 Diverticulosis of large intestine without perforation or abscess without bleeding; K29.50 Unspecified chronic gastritis without bleeding; R11.2 Nausea with vomiting, unspecified; D64.9 Anemia, unspecified; K44.9 Diaphragmatic hernia without obstruction or gangrene; I10 Essential (primary) hypertension
CPT/HCPCS: 43239; 88305; G0121; J2704; J7030

== ENCOUNTER → 2023-10-28 09:57 | Outpatient (BNVA) | payer MEDICAID, SELFPAY | PROVIDERS: PCP Family Medicine; Visit Provider Family Medicine | DX: E03.9 Hypothyroidism, unspecified (principal); N18.32 Chronic kidney disease, stage 3b; K21.00 Gastro-esophageal reflux disease with esophagitis, without bleeding; K22.719 Barrett's esophagus with dysplasia, unspecified | CPT/HCPCS: 80048; 81003; 84439; 84443 ==

== ENCOUNTER 2023-11-28 12:20 | Outpatient (CLI) | payer MEDICAID, SELFPAY ==
--- NOTE | 2023-11-28 12:23 | CTR_ITS ---
PROCEDURE INFORMATION: Exam: CT Neck With Contrast Exam date and time: 11/28/2023 2:43 PM Age: 63 years old Clinical indication: Other: Fatugue, weight loss; Patient HX: HX of cerebral palsy; Additional info: Malignant melanoma of skin/fatigue/abn weight loss TECHNIQUE: Imaging protocol: Computed tomography of the neck with contrast. Radiation optimization: All CT scans at this facility use at least one of these dose optimization techniques: automated exposure control; mA and/or kV adjustment per patient size (includes targeted exams where dose is matched to clinical indication); or iterative reconstruction. Contrast material: OMNI 350; Contrast volume: 60 ml; Contrast route: INTRAVENOUS (IV); COMPARISON: CT chest abdpel w/*[id number] 11/28/2023 2:43 PM RADIATION DOSE METRICS: Total DLP (mGy-cm): 145.3 FINDINGS: Salivary glands: Normal. Glands are normal in size. Pharynx: Unremarkable. No significant tonsillar enlargement. Prevertebral and retropharyngeal spaces: Unremarkable. Larynx: Unremarkable. Epiglottis is normal. Thyroid: Normal. No enlarged or calcified nodules. Trachea: Visualized trachea is unremarkable. Lungs: Unremarkable as visualized. Esophagus: The cervical esophagus is unremarkable. Lymph nodes: Unremarkable. No lymphadenopathy. Bones/joints: Unremarkable. No acute fracture. Soft tissues: Unremarkable. No significant soft tissue swelling. CT/CT neck w con* [id number] IMPRESSION: There is no evidence of active neoplastic disease.
--- NOTE | 2023-11-28 12:23 | CTR_ITS ---
PROCEDURE INFORMATION: Exam: CT Chest With Contrast; Diagnostic Exam date and time: 11/28/2023 2:43 PM Age: 63 years old Clinical indication: Condition or disease; Cancer; Other: Melanoma, left shoulder area; Other: Fatigue , weight loss; Additional info: Malignant melanoma of skin/fatigue/abn weight loss TECHNIQUE: Imaging protocol: Diagnostic computed tomography of the chest with contrast. Radiation optimization: All CT scans at this facility use at least one of these dose optimization techniques: automated exposure control; mA and/or kV adjustment per patient size (includes targeted exams where dose is matched to clinical indication); or iterative reconstruction. Contrast material: OMNI 350; Contrast volume: 80 ml; Contrast route: INTRAVENOUS (IV); COMPARISON: CT neck w con* [id number] 11/28/2023 2:43 PM RADIATION DOSE METRICS: Total DLP (mGy-cm): 502.9 FINDINGS: Lungs: Unremarkable. No consolidation. No masses. Pleural spaces: Unremarkable. No pneumothorax. No pleural effusion. Heart: Unremarkable. No cardiomegaly. No pericardial effusion. Lymph nodes: Unremarkable. No enlarged lymph nodes. Vasculature: Unremarkable. No aortic aneurysm. Bones/joints: Unremarkable. No acute fracture. Soft tissues: Unremarkable. PROCEDURE INFORMATION: Exam: CT Abdomen And Pelvis With Contrast Exam date and time: 11/28/2023 2:43 PM Age: 63 years old Clinical indication: Condition or disease; Cancer; Other: Melanoma, left shoulder area; Other: Fatigue , weight loss; Additional info: Malignant melanoma of skin/fatigue/abn weight loss TECHNIQUE: Imaging protocol: Computed tomography of the abdomen and pelvis with contrast. Radiation optimization: All CT scans at this facility use at least one of these dose optimization techniques: automated exposure control; mA and/or kV adjustment per patient size (includes targeted exams where dose is matched to clinical indication); or iterative reconstruction. Contrast material: OMNI 350; Contrast volume: 80 ml; Contrast route: INTRAVENOUS (IV); COMPARISON: US renal BI* [id number] 05/16/2023 12:31 PM RADIATION DOSE METRICS: Total DLP (mGy-cm): 502.9 FINDINGS: Lungs: Lung bases are clear. No pleural effusion. Liver: Normal. No mass. Gallbladder and biliary ducts: Normal. No calcified stones. No ductal dilation. Pancreas: Normal. No ductal dilation. Spleen: Normal. No splenomegaly. Adrenal glands: Normal. No mass. Kidneys and ureters: 3 cm right renal cyst noted. Stomach and bowel: Multiple diverticula involve the sigmoid colon. There is no sign of diverticulitis. Appendix: No evidence of appendicitis. Intraperitoneal space: Unremarkable. No free air. No significant fluid collection. Vasculature: Unremarkable. No abdominal aortic aneurysm. Lymph nodes: Unremarkable. No enlarged lymph nodes. Urinary bladder: Unremarkable as visualized. Reproductive: There is a 4.5 cm right ovarian cyst. Bones/joints: Unremarkable. No acute fracture. Soft tissues: Unremarkable. CT/CT chest abdpel w/*[id number] IMPRESSION: There is no evidence of active neoplastic disease. IMPRESSION: 1. There is no evidence of active neoplastic disease. 2. Right ovarian cyst 3. Sigmoid diverticulosis 4. A benign renal cyst or cysts have been detected. No further follow-up imaging is required. COMMENTS: Consistent with the [employer]'s Incidental Findings Committee white paper (J Am Isela Radiol 2018): Any incidental renal lesion less than 1 cm or classified as too small to characterize, or any incidental cystic renal lesion characterized as simple-appearing, is likely benign. No follow-up imaging is recommended for these lesions per consensus recommendations based on imaging criteria.
[2023-11-28] MEDS: iohexol 350 mg/mL 500 mL Btl (per mL) PO (13:41)
[2023-11-28 14:12] LABS: Blood Urea Nitrogen 24 mg/dL (8-23); Glomerular Filtration Rate 32.7 mL/min (90-130)
[2023-11-28] MEDS: iohexol 350 mg/mL 500 mL Btl (per mL) IV (15:04)
== END 2023-11-28 12:21 | disposition home or self-care (01) ==
LOC: RAD 12:20
PROVIDERS: PCP Family Medicine; Visit Provider Dermatology
DX: C43.9 Malignant melanoma of skin, unspecified (principal); N83.291 Other ovarian cyst, right side; K57.90 Diverticulosis of intestine, part unspecified, without perforation or abscess without bleeding
CPT/HCPCS: 70491; 71260; 74177; 82565; 84520; Q9967

== ENCOUNTER 2024-01-22 11:25 | Oncology outpatient (recurring) (ONCR) | payer MEDICAID, SELFPAY ==
[2024-01-22 11:44] LABS: Basophils # 0.1 10^3/uL (0.0-0.1); Basophils % 0.6 %; Eosinophils # 0.2 10^3/uL (0.0-0.8); Eosinophils % 2.1 %; Hematocrit 34.7 % (36-47); Lymphocytes # 1.7 10^3/uL (0.8-4.8); Lymphocytes % 15.6 %; Mean Corpuscular HGB Conc 32.3 g/dL (30-55); Mean Corpuscular Hemoglobin 29.9 pg (27-33); Mean Corpuscular Volume 92.8 fl (85-98); Mean Platelet Volume 9.4 fL (7.4-10.4); Monocytes # 0.5 10^3/uL (0.2-0.9); Monocytes % 4.8 %; Neutrophils # 8.35 10^3/uL (1.8-7.7); Neutrophils % 76.5 %; Nucleated Red Blood Cells % 0 %; Platelet Count 269 10^3/cmm (157-399); Red Blood Count 3.74 10^6/uL (3.85-5.65); Red Cell Distribution Width 13.2 % (12.1-15.1); White Blood Count 10.93 10^3/uL (3.29-11.43)
[2024-01-22 12:06] LABS: Alanine Aminotransferase 6 U/L (0-33); Albumin Level 4.2 g/dL (3.5-5.2); Alkaline Phosphatase 66 U/L (35-105); Anion Gap 15.9 (5-19); Aspartate Amino Transferase 15 U/L (0-32); Blood Urea Nitrogen 24 mg/dL (8-23); Calcium 8.7 mg/dL (8.5-10.5); Carbon Dioxide 25 mmol/L (22-29); Chloride 107 mmol/L (98-107); Globulin 2.4 g/dL (1.3-4.6); Glomerular Filtration Rate 32.7 mL/min (90-130); Glucose 102 mg/dL (65-115); Lactate Dehydrogenase 158 U/L (135-214); Osmolality Calculated 300 mOsm/kg (285-295); Potassium 4.9 mmol/L (3.5-5.1); Sodium 143 mmol/L (136-145); Total Bilirubin 0.2 mg/dL (0.15-1.2); Total Protein 6.6 g/dL (6.6-8.7)
== END 2024-01-31 23:55 | disposition home or self-care (01) ==
PROVIDERS: PCP Family Medicine; Visit Provider Internal Medicine
DX: C43.62 Malignant melanoma of left upper limb, including shoulder (principal); D64.9 Anemia, unspecified; Z87.891 Personal history of nicotine dependence; F12.90 Cannabis use, unspecified, uncomplicated
CPT/HCPCS: 36415; 80053; 83615; 85025

== ENCOUNTER 2024-02-06 09:07 | Outpatient (CLI) | payer MEDICAID, SELFPAY ==
[2024-02-06 09:40] LABS: Basophils # 0.1 10^3/uL (0.0-0.1); Basophils % 0.9 %; Eosinophils # 0.2 10^3/uL (0.0-0.8); Eosinophils % 3.4 %; Hematocrit 35.1 % (36-47); Lymphocytes # 1.5 10^3/uL (0.8-4.8); Lymphocytes % 26.1 %; Mean Corpuscular HGB Conc 31.6 g/dL (30-55); Mean Corpuscular Hemoglobin 29.7 pg (27-33); Mean Corpuscular Volume 93.9 fl (85-98); Mean Platelet Volume 9.7 fL (7.4-10.4); Monocytes # 0.3 10^3/uL (0.2-0.9); Monocytes % 5.4 %; Neutrophils # 3.55 10^3/uL (1.8-7.7); Nucleated Red Blood Cells % 0 %; Platelet Count 261 10^3/cmm (157-399); Red Blood Count 3.74 10^6/uL (3.85-5.65); Red Cell Distribution Width 13.4 % (12.1-15.1); White Blood Count 5.55 10^3/uL (3.29-11.43)
[2024-02-06 10:01] LABS: Albumin Level 4.4 g/dL (3.5-5.2); Anion Gap 14.7 (5-19); Blood Urea Nitrogen 22 mg/dL (8-23); Calcium 8.7 mg/dL (8.5-10.5); Carbon Dioxide 26 mmol/L (22-29); Chloride 102 mmol/L (98-107); Glomerular Filtration Rate 38.1 mL/min (90-130); Glucose 102 mg/dL (65-115); Phosphorus 3.6 mg/dL (2.5-4.5); Potassium 4.7 mmol/L (3.5-5.1); Sodium 138 mmol/L (136-145)
[2024-02-06 10:03] LABS: Creatinine Urine, Random 96 mg/dL (28-217); Microalbum Creatinine Ratio Ur 10 mg/dL (0-20); Microalbumin Random Urine 1 ug/dL (0-20)
== END 2024-02-06 09:08 | disposition home or self-care (01) ==
LOC: LAB 09:09
PROVIDERS: PCP Family Medicine; Visit Provider Registered Nurse
DX: N18.32 Chronic kidney disease, stage 3b (principal)
CPT/HCPCS: 36415; 80069; 82044; 85025

== ENCOUNTER → 2024-03-15 10:29 | Outpatient (BNVA) | payer MEDICAID, SELFPAY | PROVIDERS: PCP Family Medicine; Visit Provider Registered Nurse Neonatal Intensive Care | DX: R39.9 Unspecified symptoms and signs involving the genitourinary system (principal) | CPT/HCPCS: 81000; 87086 ==

== ENCOUNTER 2024-04-20 13:00 | Outpatient (CLI) | payer MEDICAID, SELFPAY ==
[2024-04-20 13:24] LABS: Basophils # 0.1 10^3/uL (0.0-0.1); Basophils % 0.8 %; Eosinophils # 0.1 10^3/uL (0.0-0.8); Eosinophils % 2.2 %; Hematocrit 33.5 % (36-47); Lymphocytes # 1.6 10^3/uL (0.8-4.8); Lymphocytes % 26.4 %; Mean Corpuscular HGB Conc 32.2 g/dL (30-55); Mean Corpuscular Hemoglobin 30.3 pg (27-33); Mean Corpuscular Volume 93.8 fl (85-98); Mean Platelet Volume 9.4 fL (7.4-10.4); Monocytes # 0.4 10^3/uL (0.2-0.9); Monocytes % 6.5 %; Neutrophils # 3.82 10^3/uL (1.8-7.7); Neutrophils % 63.9 %; Nucleated Red Blood Cells % 0 %; Platelet Count 253 10^3/cmm (157-399); Red Blood Count 3.57 10^6/uL (3.85-5.65); Red Cell Distribution Width 13.6 % (12.1-15.1); White Blood Count 5.98 10^3/uL (3.29-11.43)
[2024-04-20 13:42] LABS: Creatinine Urine, Random 102 mg/dL (28-217); Microalbum Creatinine Ratio Ur 10 mg/dL (0-20); Microalbumin Random Urine 1 ug/dL (0-20)
[2024-04-20 13:45] LABS: Albumin Level 4.3 g/dL (3.5-5.2); Anion Gap 13.4 (5-19); Blood Urea Nitrogen 21 mg/dL (8-23); Calcium 9.2 mg/dL (8.5-10.5); Carbon Dioxide 26 mmol/L (22-29); Chloride 104 mmol/L (98-107); Ferritin 110 ng/mL (15-150); Glomerular Filtration Rate 35.2 mL/min (90-130); Glucose 99 mg/dL (65-115); Iron 77 ug/dL (37-145); Phosphorus 3.4 mg/dL (2.5-4.5); Potassium 4.4 mmol/L (3.5-5.1); Sodium 139 mmol/L (136-145); Total Iron Binding Capacity 256 mcg/dl; Unsaturated Iron Binding 179 ug/dL (112-347)
[2024-04-20 13:52] LABS: Parathyroid Hormone 74.3 pg/mL (15-65)
[2024-04-20 14:00] LABS: 25 Hydroxy Vitamin D 18 ng/mL (30-100)
== END 2024-04-20 13:01 | disposition home or self-care (01) ==
PROVIDERS: PCP Family Medicine; Visit Provider Registered Nurse
DX: N18.32 Chronic kidney disease, stage 3b (principal); D64.9 Anemia, unspecified
CPT/HCPCS: 36415; 80069; 82044; 82306; 82310; 82728; 83540; 83550; 83970; 85025

== ENCOUNTER → 2024-04-22 14:50 | Outpatient (BNVA) | payer MEDICAID, SELFPAY | DX: M17.12 Unilateral primary osteoarthritis, left knee (principal); E03.9 Hypothyroidism, unspecified | CPT/HCPCS: 73562; 84439; 84443; 84481 ==

== ENCOUNTER 2024-07-30 07:38 | Oncology outpatient (recurring) (ONCR) | payer MEDICAID, SELFPAY ==
[2024-07-30 07:59] LABS: Basophils # 0.1 10^3/uL (0.0-0.1); Basophils % 0.8 %; Eosinophils # 0.3 10^3/uL (0.0-0.8); Eosinophils % 4.5 %; Hematocrit 32.9 % (36-47); Lymphocytes # 2.1 10^3/uL (0.8-4.8); Lymphocytes % 33.1 %; Mean Corpuscular HGB Conc 31.6 g/dL (30-55); Mean Corpuscular Hemoglobin 30.6 pg (27-33); Mean Corpuscular Volume 96.8 fl (85-98); Mean Platelet Volume 9.3 fL (7.4-10.4); Monocytes # 0.4 10^3/uL (0.2-0.9); Monocytes % 6.9 %; Neutrophils % 54.5 %; Nucleated Red Blood Cells % 0 %; Platelet Count 276 10^3/cmm (157-399); Red Cell Distribution Width 13.5 % (12.1-15.1); White Blood Count 6.41 10^3/uL (3.29-11.43)
[2024-07-30 08:19] LABS: Alanine Aminotransferase 7 U/L (0-33); Albumin Level 4.2 g/dL (3.5-5.2); Alkaline Phosphatase 65 U/L (35-105); Anion Gap 12.7 (5-19); Aspartate Amino Transferase 14 U/L (0-32); Blood Urea Nitrogen 24 mg/dL (8-23); Calcium 8.9 mg/dL (8.5-10.5); Carbon Dioxide 26 mmol/L (22-29); Chloride 105 mmol/L (98-107); Globulin 2.5 g/dL (1.3-4.6); Glomerular Filtration Rate 35.2 mL/min (90-130); Glucose 113 mg/dL (65-115); Lactate Dehydrogenase 195 U/L (135-214); Osmolality Calculated 293 mOsm/kg (285-295); Potassium 4.7 mmol/L (3.5-5.1); Sodium 139 mmol/L (136-145); Total Bilirubin 0.3 mg/dL (0.15-1.2); Total Protein 6.7 g/dL (6.6-8.7)
== END 2024-07-30 23:59 | disposition home or self-care (01) ==
LOC: ONCMED 07:39
PROVIDERS: Nurse Practitioner Family; Visit Provider Internal Medicine
DX: C43.62 Malignant melanoma of left upper limb, including shoulder (principal)
CPT/HCPCS: 36415; 80053; 83615; 85025

== ENCOUNTER 2024-08-25 10:08 | Outpatient (CLI) | payer MEDICAID, SELFPAY ==
[2024-08-25 11:04] LABS: Basophils # 0.1 10^3/uL (0.0-0.1); Basophils % 0.6 %; Eosinophils # 0.1 10^3/uL (0.0-0.8); Eosinophils % 0.9 %; Hematocrit 35.9 % (36-47); Lymphocytes # 1.2 10^3/uL (0.8-4.8); Mean Corpuscular HGB Conc 31.8 g/dL (30-55); Mean Corpuscular Hemoglobin 30.2 pg (27-33); Mean Platelet Volume 9.4 fL (7.4-10.4); Monocytes # 0.6 10^3/uL (0.2-0.9); Monocytes % 6.4 %; Neutrophils # 7.15 10^3/uL (1.8-7.7); Neutrophils % 78.5 %; Nucleated Red Blood Cells % 0 %; Platelet Count 342 10^3/cmm (157-399); Red Blood Count 3.78 10^6/uL (3.85-5.65); Red Cell Distribution Width 13.1 % (12.1-15.1); White Blood Count 9.09 10^3/uL (3.29-11.43)
[2024-08-25 11:27] LABS: Creatinine Urine, Random 96 mg/dL (28-217); Microalbumin Random Urine 4 ug/dL (0-20)
[2024-08-25 11:30] LABS: Albumin Level 4.5 g/dL (3.5-5.2); Anion Gap 14.5 (5-19); Blood Urea Nitrogen 22 mg/dL (8-23); Calcium 8.9 mg/dL (8.5-10.5); Carbon Dioxide 26 mmol/L (22-29); Chloride 101 mmol/L (98-107); Glomerular Filtration Rate 38.1 mL/min (90-130); Glucose 96 mg/dL (65-115); Iron 91 ug/dL (37-145); Percent Saturation 36.5 % (20-50); Phosphorus 3.1 mg/dL (2.5-4.5); Potassium 4.5 mmol/L (3.5-5.1); Sodium 137 mmol/L (136-145); Total Iron Binding Capacity 249 mcg/dl; Unsaturated Iron Binding 158 ug/dL (112-347)
[2024-08-25 11:31] LABS: Microalbum Creatinine Ratio Ur 42 mg/dL (0-20)
[2024-08-25 11:34] LABS: Calcium 9.1 mg/dL (8.5-10.5)
[2024-08-25 11:37] LABS: Parathyroid Hormone 55.4 pg/mL (15-65)
[2024-08-25 11:46] LABS: 25 Hydroxy Vitamin D 35 ng/mL (30-100)
== END 2024-08-25 10:09 | disposition home or self-care (01) ==
LOC: LAB 10:19
PROVIDERS: Visit Provider Registered Nurse
DX: N18.32 Chronic kidney disease, stage 3b (principal)
CPT/HCPCS: 36415; 80069; 82044; 82306; 82310; 83540; 83550; 83970; 85025

== ENCOUNTER → 2024-10-19 09:36 | Outpatient (BNVA) | payer MEDICAID, SELFPAY | DX: E03.9 Hypothyroidism, unspecified (principal); I10 Essential (primary) hypertension | CPT/HCPCS: 80053; 84439; 84443 ==

== ENCOUNTER 2024-10-22 08:48 | Outpatient (CLI) | payer MEDICAID, SELFPAY ==
--- NOTE | 2024-10-22 09:00 | MM_ITS ---
WS: [id number] BILATERAL SCREENING DIGITAL TOMOSYNTHESIS MAMMOGRAM WITH CAD HISTORY: screening COMPARISON: 11/29/2021, 02/15/2010 Bilateral CC and MLO views with tomosynthesis and synthetic mammography submitted. Computer aided detection analyzed. Breast composition: The breasts are extremely dense, which lowers the sensitivity of mammography. No suspicious masses, microcalcifications or architectural distortion. MM/MM scr tomosynthesis [id number] IMPRESSION: BI-RADS: 1 - Negative FOLLOW UP: 1 Year Follow-up
== END 2024-10-22 08:49 | disposition home or self-care (01) ==
LOC: RAD 08:49
DX: Z12.31 Encounter for screening mammogram for malignant neoplasm of breast (principal); R92.343 Mammographic extreme density, bilateral breasts
CPT/HCPCS: 77063; 77067

== ENCOUNTER → 2024-11-10 08:52 | Outpatient (BNVA) | payer MEDICAID, SELFPAY | PROVIDERS: Visit Provider Podiatrist Foot & Ankle Surgery | DX: M79.671 Pain in right foot (principal); M79.672 Pain in left foot; G80.4 Ataxic cerebral palsy; Q66.71 Congenital pes cavus, right foot; Q66.72 Congenital pes cavus, left foot; Z91.81 History of falling; R26.81 Unsteadiness on feet | CPT/HCPCS: 73630 ==

== ENCOUNTER 2025-02-21 09:02 | Oncology outpatient (recurring) (ONCR) | payer MEDICAID, SELFPAY ==
[2025-02-21 09:41] LABS: Hematocrit 32.3 % (36-47); Hemoglobin 10.40 g/dL (11.27-16.99); Mean Corpuscular HGB Conc 32.2 g/dL (30-55); Mean Corpuscular Hemoglobin 30.6 pg (27-33); Mean Corpuscular Volume 95.0 fl (85-98); Nucleated Red Blood Cells % 0 %; Platelet Count 255 10^3/cmm (157-399); Red Blood Count 3.40 10^6/uL (3.85-5.65); White Blood Count 5.68 10^3/uL (3.29-11.43)
[2025-02-21 10:01] LABS: Alanine Aminotransferase 9 U/L (0-33); Albumin Level 4.1 g/dL (3.5-5.2); Alkaline Phosphatase 65 U/L (35-105); Anion Gap 13.6 (5-19); Aspartate Amino Transferase 12 U/L (0-32); Blood Urea Nitrogen 21 mg/dL (8-23); Calcium 8.9 mg/dL (8.5-10.5); Carbon Dioxide 26 mmol/L (22-29); Chloride 104 mmol/L (98-107); Globulin 2.5 g/dL (1.3-4.6); Glucose 96 mg/dL (65-115); Osmolality Calculated 291 mOsm/kg (285-295); Potassium 4.6 mmol/L (3.5-5.1); Sodium 139 mmol/L (136-145); Total Protein 6.6 g/dL (6.6-8.7)
[2025-02-21 10:04] LABS: Creatinine Clr Calc Pharmacy 35.8906
== END 2025-03-01 23:59 | disposition home or self-care (01) ==
PROVIDERS: Nurse Practitioner Family; Visit Provider Internal Medicine Medical Oncology
DX: C43.62 Malignant melanoma of left upper limb, including shoulder (principal)
CPT/HCPCS: 36415; 80053; 83615; 85025

== ENCOUNTER 2025-03-07 13:18 | Outpatient (CLI) | payer MEDICAID, SELFPAY ==
[2025-03-07 13:53] LABS: Hematocrit 33.6 % (36-47); Hemoglobin 10.80 g/dL (11.27-16.99); Mean Corpuscular HGB Conc 32.1 g/dL (30-55); Mean Corpuscular Hemoglobin 30.4 pg (27-33); Mean Corpuscular Volume 94.6 fl (85-98); Nucleated Red Blood Cells % 0 %; Platelet Count 364 10^3/cmm (157-399); Red Blood Count 3.55 10^6/uL (3.85-5.65); White Blood Count 11.32 10^3/uL (3.29-11.43)
[2025-03-07 14:09] LABS: Creatinine Urine, Random 132 mg/dL (28-217); Microalbum Creatinine Ratio Ur 8 mg/dL (0-20)
[2025-03-07 14:21] LABS: Calcium 8.9 mg/dL (8.5-10.5)
[2025-03-07 14:31] LABS: Albumin Level 4.4 g/dL (3.5-5.2); Anion Gap 14.6 (5-19); Blood Urea Nitrogen 29 mg/dL (8-23); Calcium 8.7 mg/dL (8.5-10.5); Carbon Dioxide 25 mmol/L (22-29); Chloride 100 mmol/L (98-107); Glucose 90 mg/dL (65-115); Potassium 3.6 mmol/L (3.5-5.1); Sodium 136 mmol/L (136-145)
== END 2025-03-07 13:19 | disposition home or self-care (01) ==
LOC: LAB 13:19
PROVIDERS: Visit Provider Registered Nurse
DX: N18.32 Chronic kidney disease, stage 3b (principal)
CPT/HCPCS: 36415; 80069; 82044; 82306; 82310; 83970; 85025

== ENCOUNTER 2025-04-04 06:30 | Day surgery (SDC) | payer MEDICAID, SELFPAY ==
[2025-04-04] VITALS (10 sets, daily range): BP systolic 94–118; BP diastolic 40–63; PULSE 62–73; RESP 16–22; TEMP 36.3–36.8; O2SAT 91–100; BMI 19.7
--- NOTE | 2025-04-04 06:50 | P.HPUD_ITS ---
Surgery/Procedure H&P Update DATE OF PROCEDURE: April 04, 2025 DATE H&P PERFORMED: 03/16/25 H&P UPDATE INFORMATION: I have reviewed H&P completed within last 30 days, I have examined patient prior to procedure, No changes to prior documentation, H&P is in [facility] EMR on date indicated and Risks and benefits of the procedure reviewed PLANNED PROCEDURE: Operation Date: 04/04/25 08:00 Proposed Procedures p RIGHT Open Inguinal Hernia Repair w/ Mesh 53929 K43.9 K41.90(Right) - Hank Fortune MD
--- NOTE | 2025-04-04 07:33 | ANES.PREANE2 ---
Pre-Anesthetic Assessment Height/Weight: Height 5 ft 6 in Weight 122 lb Temp Pulse Resp BP Pulse Ox O2 Del Method 97.3 F L 73 18 100/63 99 Room Air 04/04/25 06:38 04/04/25 06:38 04/04/25 06:38 04/04/25 06:38 04/04/25 06:38 04/04/25 06:38 Preop Diagnosis: Inguinal hernia Operation Date: 04/04/25 08:00 Proposed Procedures p RIGHT Open Inguinal Hernia Repair w/ Mesh 62150 K43.9 K41.90(Right) - Hank Fortune MD Was Beta Radhika taken within 24 hours: N/A Was Clonidine taken within 24 hours: N/A Last intake: Intake Last Liquid Date 04/03/25 Last Liquid Time 16:00 Last Solid Date 04/03/25 Last Solid Time 16:00 Social No alcohol and No tobacco Exam alert, oriented x 3, clear to auscultation bilaterally and regular rate & rhythm Airway Submandibular: within normal limits Cervical ROM: within normal limits Mallampati: Class II Comments: Comments: Few teeth left, denies any loose teeth Anesthetic Plan ASA status: 3 Anesthesia: General Other: No prior issues with anesthesia NPO since yesterday evening History of hypertension on amlodipine?benazepril GERD, controlled with Protonix and Pepcid Hypothyroidism on Synthroid Labs reviewed from 03/07/2025 acceptable for procedure, CR 1.5 at that time which appears to be baseline for her Plan for general anesthesia with possible peripheral nerve block Medications/Allergies Home Medications ?Medication ?Instructions ?Recorded ?Confirmed ?Last Taken ?Type cetirizine 10 mg capsule (Zyrtec) 10 mg PO DAILY 09/26/23 04/04/25 04/03/25 History famotidine 20 mg tablet 20 mg PO DAILY 07/30/24 04/04/25 04/03/25 History cholecalciferol (vitamin D3) 50 50 mcg PO DAILY 10/19/24 04/04/25 04/03/25 History mcg (2,000 unit) capsule clonazepam 0.5 mg tablet 0.5 mg PO DAILY PRN anxiety, bowel 11/01/24 04/04/25 04/04/25 Rx spasm 30 days #30 tabs AFO to the left #1 ea 11/10/24 04/04/25 Unknown Rx ezetimibe 10 mg tablet (Zetia) 10 mg PO DAILY #30 tabs 01/07/25 04/04/25 04/03/25 Rx amlodipine 5 mg-benazepril 10 mg 1 cap PO DAILY #30 caps 01/10/25 04/04/25 04/03/25 Rx capsule escitalopram oxalate 20 mg tablet 20 mg PO DAILY #30 tabs 01/10/25 04/04/25 04/03/25 Rx (Lexapro) Synthroid 100 mcg tablet 100 mcg PO DAILY #90 tabs 02/01/25 04/04/25 04/04/25 Rx (levothyroxine) Zhane AFO-right #1 ea 03/08/25 04/04/25 Unknown Rx pantoprazole 40 mg tablet,delayed 40 mg PO DAILY 03/31/25 04/04/25 04/03/25 History release acetaminophen 650 mg 650 mg PO Q8H PRN Pain 04/01/25 04/04/25 04/03/25 History tablet,extended release Allergies Allergy/AdvReac Type Severity Reaction Status Date / Time Sulfa (Sulfonamide Allergy Severe ALGY-Swell Verified 04/04/25 06:40 Antibiotics) Lip/Tongue/Throat egg Allergy Unknown ADR-Diarrhe Verified 04/04/25 06:40 a codeine Allergy ADR-Nausea Verified 04/04/25 06:40 Current Medications Generic Name Dose Route Start Last Admin Trade Name Freq PRN Reason Stop Dose Admin Sodium Chloride 1,000 mls @ 30 mls/hr 04/04/25 06:45 04/04/25 06:59 Sodium Chloride 0.9% IV 04/05/25 06:44 30 mls/hr .Q24H LILI Administration PFSH Anesthesia Medical History Diverticulitis large intestine w/o perforation or abscess w/bleeding Marijuana smoker, continuous History of tobacco abuse Anxiety Cerebral palsy Social History (Updated 03/16/25 @ 14:14 by LEILA Sampson) Smoking and tobacco/nicotine status: former use of tobacco/nicotine Alcohol intake: never Substance/Drug Use: current Female Reproductive History Spontaneous abortions: No
[2025-04-04] MEDS: ceFAZolin 2,000 mg SDV 2000 MG IVP (08:08)
[2025-04-04] MEDS: BUPivacaine 0.25% INJ 10 mL INJECTION (09:29)
[2025-04-04] MEDS: lidocaine-epi 1% 20 mL INJ 10 ML INJECTION (09:29)
--- NOTE | 2025-04-04 09:39 | PM.OP ---
Operative Report Date of procedure: April 04, 2025 Pre-op diagnosis: Right inguinal hernia Post-op diagnosis: Right inguinal hernia Post-op findings: There was a indirect right inguinal hernia, no other significant findings Procedure done: Open repair of right inguinal hernia with mesh Implants: Bard soft mesh Specimens removed/disposition: None Surgeon: Hank Fortune MD Information Security Manager: HERIBERTO OR Staff Estimated blood loss: 10 Complications: none apparent Brief History: This is a 64-year-old female who presents to my office for evaluation for a right inguinal hernia. After discussion of risk benefits with side to proceed to the OR for open right inguinal hernia repair with mesh. Procedure: Patient was brought into the OR, she was placed in a supine position. General anesthesia was given. The abdomen was prepped and draped in the usual sterile fashion. A timeout was conducted. Local anesthesia was infiltrated in the right groin. The anatomy, and landmarks had been marked and I made a 5 cm incision following the direction of the inguinal ligament on the right groin. The incision was deepened into the subcutaneous tissue, Johana's fascia was opened revealing the aponeurosis of the external oblique. The aponeurosis of the external oblique was opened with a 15 blade taking careful consideration of not injuring the underlying structures, the opening was completed with a Metzenbaum from the area of the external inguinal ring to the area overlying the internal ring. With careful blunt dissection I was able to encircle the round ligament. I then started dissection, hernia sac was identified, this was deeply adherent to the round ligament and therefore it was impossible to completely dissected out. I therefore decided to transect the round ligament distal to the area where the sac ended. The round ligament was transected and hemostasis was verified. The hernia sac was then pushing into the preperitoneal space. I then proceeded to imbricate the floor of the inguinal canal by approximated the shelving edge of the inguinal ligament to the conjoined tendon with several #2-0 Prolene [id number] sutures. Once the floor of the canal was imbricated I then proceeded to place polypropylene mesh that was trimmed to size into the space. The mesh was then fixed with #0 Prolene medially to the pubic tubercle. I then used #2-0 Prolene fix the mesh to the shelving edge of the inguinal ligament. And I used 2-0 Vicryl to fix the mesh superiorly and laterally to the conjoined tendon. Adequate position of the mass was verified, hemostasis was verified. The wound was irrigated. During dissection careful consideration was made to preserve the nerves of the groin. I then proceeded to close the aponeurosis of the external bleak using #2-0 Vicryl. The wound was then closed in layers using #3-0 Vicryl for the Johana's fascia and subcutaneous tissue #4 Monocryl for the skin and Dermabond was applied. At the end of the procedure all counts were correct, the patient tolerated well the procedure was transferred to the PACU in stable condition.
--- NOTE | 2025-04-04 10:45 | ANES.PROC ---
Anesthesia Procedures Procedure/Date: 04/04/25 Right tap block for postoperative pain control Nerve Block ^: Nerve Block 1: Time Out Performed: Yes Consent: requested by attending/covering physician and from patient Laterality: Right Nerve block location: other (TAP block) Anesthesia monitors applied: pulse oximetry, EKG, BP cuff and oxygen Nerve block position: supine Anesthetic Used: other (ropivacaine 0.2%) Amount of anesthesia used (mL): 30 Ultrasound used to: recognize landmarks Nerve Stimulator Used?: Yes Interscalene/Femoral BLK: other needle (pjunk 4inch) Injection: neg aspiration of heme Patient Tolerated Procedure: well Complications: none
--- NOTE | 2025-04-04 11:12 | ANE.PACU2 ---
Inpatient post-anesthesia follow up: Airway intact: Yes Vital signs: Temperature 97.8 F Pulse Rate 68 Respiratory Rate 18 Blood Pressure 115/56 Pulse Oximetry 96 Oxygen Delivery Me thod Room Air Oxygen Flow Rate 10 Fraction of Inspir ed Oxygen Hydration adequate: Yes Nausea and vomiting: Yes (After removing IV, patient got nauseous in phase 2. ) Mental status: Baseline Additional Comments: Zofran sublingual given and patient did well
== END 2025-04-04 11:12 | disposition home or self-care (01) ==
PROVIDERS: Visit Provider Surgery
PROC: (CPT 49505; principal; 2025-04-04 07:50)
DX: K40.90 Unilateral inguinal hernia, without obstruction or gangrene, not specified as recurrent (principal); I10 Essential (primary) hypertension; K21.9 Gastro-esophageal reflux disease without esophagitis; E03.9 Hypothyroidism, unspecified; F12.90 Cannabis use, unspecified, uncomplicated; Z87.891 Personal history of nicotine dependence; F41.9 Anxiety disorder, unspecified; K57.92 Diverticulitis of intestine, part unspecified, without perforation or abscess without bleeding
CPT/HCPCS: 49505; 64486; C1713; J0690; J1100; J2250; J2371; J2405; J2704; J3010; J3490; J7030; J9999

== ENCOUNTER → 2025-04-19 09:39 | Outpatient (BNVA) | payer MEDICAID, SELFPAY | DX: I10 Essential (primary) hypertension (principal); E03.9 Hypothyroidism, unspecified | CPT/HCPCS: 80053; 80061; 84443 ==